=== PATIENT | female | born 1985 | race African-American/Black ===

== ENCOUNTER 2018-11-16 07:31 | Outpatient (CLI) | payer OTHER ==
--- NOTE | 2018-11-16 10:42 | ULT ---
OBSTETRICAL ULTRASOUND: 11/16/2018 HISTORY: A 33-year-old female, undergoing assessment for size and dates. COMPARISON: None. TECHNIQUE: Multiplanar terry-scale sonographic imaging of the gravid uterus is obtained. FINDINGS: The cervix measures approximately 3.8 cm in length. There is a single intrauterine gestation, demonstrating a vertex presentation. Placenta is located a nteriorly, with no evidence for previa or abruption. heart rate is 162 beats per minute. Evaluation of the intracranial contents appears grossly unremarkable, but they are suboptimally assessed secondary to the location of the head and the patient body habitus. Evaluation of th e spine is grossly unremarkable but limited as well. Four-chamber heart view is limited secondary to body habitus as well. urinary bladder and umbi lical cord appear grossly unremarkable, as does the region of the kidneys and stomach. F our-chamber heart view is felt to likely be within normal limits. Amniotic fluid index is 13.8 cm, within normal limits. The umbilical cord insertion site could not b e optimally assessed on this exam. BIOMETRY: BPD: 6.8 cm (27 weeks 3 days). HC: 25.3 cm (27 weeks 3 days). AC: 23.1 cm (27 weeks 3 days). FL: 5.2 cm (27 weeks 5 days). Average age based on ultrasound is 27 weeks 4 days. Estimated date of delivery is 02/11/2019. Estimated weight is 1090 g, plus/minus 161 g. IMPRESSION: Single intrauterine gestation, as detailed above. POS: [facility]
== END 2018-11-16 07:32 | disposition home or self-care (01) ==
LOC: ULT 07:31
PROVIDERS: ATTEND Family Medicine
DX: O09.92 Supervision of high risk pregnancy, unspecified, second trimester (principal); Z3A.27 27 weeks gestation of pregnancy
CPT/HCPCS: 76805

== ENCOUNTER 2019-02-13 16:04 | Inpatient (IN) | payer OTHER ==
--- NOTE | 2019-02-13 15:08 | PDOC.FPROB ---
FMR OB H&P: HPI - History of Present Illness Chief Complaint: IOL Indentification: 33yo female at 39.4wks by 21.5wk US History of Present Illness: 33yo female at 39.4wks by 21.5wk US presents for IOL. has been complicated by late transition of care and obesity. Denies VB, LOF, CTX, change in discharge. Endorses FM. Denies CASILLAS, vision changes, RUQ pain, SOB, edema. Primary Care Physician: Dr Sol FMR OB H&P: Current - Care : 1 Para: 0 Gestational age: 39.4 Due date: 02/16/19 Dating Criteria: 21.5wk sono Total weight gain: last weight 370 (12/27/18) - OB Labs Blood type: A RH: positive Antibody Screen: negative HIV: negative RPR: negative HepBsAg: negative Rubella: immune Gonorrhea: negative Chlamydia: negative 1 hour gtt: 68 GBS: negative H&H: 12.9/37.5 - First Trimester Ultrasound First trimester: Dating US 21.5 wks FMR OB H&P: History - OB History OB History: Obesity in - [employer] History [employer] History: Normal PAP on 09/02/18 FMR OB H&P: Medications - Current Home Medications: Medication Instructions Recorded Confirmed Type Pnv72/Iron,Gluc/Folic/Dss/Dha 1 each PO DAILY 02/13/19 02/13/19 History [Citranatal 90 DHA Combo Pack] Allergies/Adverse Reactions: Allergies Allergy/AdvReac Type Severity Reaction Status Date / Time Penicillins Allergy Mild Hives Verified 02/14/19 00:15 FMR OB H&P: ROS - Review of Systems General: denies: fever/chills, weight/appetite/sleep changes Eyes: denies: vision changes, double vision, scotomas, floaters ENT: denies: nasal congestion, rhinorrhea Cardiovascular: denies: chest pain, palpitation Respiratory: denies: cough, congestion, shortness of breath Gastrointestinal: denies: abdominal pain Genitourinary (Female): denies: dysuria, vaginal discharge, vaginal bleeding, contractions Musculoskeletal: denies: pain, stiffness, swelling Neurologic: denies: weakness, headache Integumentary: denies: itching, rash FMR OB H&P: Physical Exam - Physical Exam General: NAD, awake, alert and oriented HEENT: normocephalic and atraumatic, conjunctiva clear, oropharynx clear Neck: supple, trachea midline Heart: RRR, no murmurs/rubs/gallops, pulses present, no edema General: CTAB, no respiratory distress, no wheezing Abdomen: gravid, other (obese) FMR OB H&P: A/P - Problem List (1) High-risk in third trimester Status: Acute Code(s): O09.93 - SUPERVISION OF HIGH RISK , UNSP, THIRD TRIMESTER (2) Obesity Status: Acute Code(s): E66.9 - OBESITY, UNSPECIFIED Disposition: 33yo female at 39.4wks by 21.5wk US sIUP, IOL - NST reactive - Admit to L&D - SVE: 3 - Will start induction with cytotec - Would like to avoid epidural but watching video - Serial cervical checks BMP 54 Discussion: Date/Time: 02/13/19 1505 This H&P was discussed with Dr. Marcelino who agrees with the above documentation and plan. Addendum - Attending - Attending Attestation Date/Time: 02/14/192052 I personally evaluated the patient and discussed the management with Dr. Jiménez and Ebenezer. I agree with the History, Examination, Assessment and Plan documented above with any addition or exceptions noted below. 33 yo G1 at 39w4d dated by 21w5d US undergoing elective induction for BMI of 54. Cat I FHT. Start induction with cytotec. Cephalic presentation confirmed by ultrasound. GBS negative.
[2019-02-13] MEDS ORDERED: Promethazine HCl 25 MG/ML VIAL IM PRN (22:58)
[2019-02-13] MEDS ORDERED: Ondansetron PF 4 MG/2 ML Vial IVP PRN (22:58)
[2019-02-13] MEDS ORDERED: Lidocaine 1% (PF) 30 ML VIAL SC PRN (22:58)
[2019-02-13] MEDS ORDERED: NS / Oxytocin 40 units/1000ml 1,000 ML IV PRN (22:58)
[2019-02-13 23:40] VITALS: BMI 54.8
[2019-02-14] MEDS: Lactated Ringer's 1,000 ML IV SCH ×3 (00:06→15:38)
[2019-02-14] MEDS: Misoprostol 100 MCG TAB VAG SCH ×4 (00:36→15:10)
[2019-02-14 01:05] LABS: Mean Corpuscular HGB CONC 34.2 g/dL (32.0-36.0); Mean Corpuscular Hemoglobin 32.5 pg (27.0-31.0); Mean Platelet Volume 8.5 fL (7.4-10.4); Platelet Count 208 thou/uL (130-400); RBC Distribution Width 12.9 % (11.5-14.5); White Blood Cell (WBC) Count 10.2 thou/uL (4.8-10.8)
[2019-02-14 01:50] LABS: Hep B Surf Ag Non-Reactive S/CO (NonReactive); Syphilis Antibody Nonreactive (Nonreactive); Syphilis Antibody Index 0.07 S/CO (<1.00 Non-Reactive)
--- NOTE | 2019-02-14 04:53 | PDOC.LDPN ---
Labor & Delivery Progress Note - Subjective Subjective: painful contractions - Objective Vital signs reviewed and normal: yes General: NAD Uterine fundus: non tender Dilation: 4 Effacement: 50% Station: -2 FHT: category 1 (130/mod/+ accels/no decels) [place] contractions every: 3-5min - Assessment (1) High-risk in third trimester Code(s): O09.93 - SUPERVISION OF HIGH RISK , UNSP, THIRD TRIMESTER Status: Acute (2) Obesity Code(s): E66.9 - OBESITY, UNSPECIFIED Status: Acute Plan: continue plan of care, labor augmentation -: 33yo female at 39.4wks by 21.5wk US sIUP, IOL - NST reactive - SVE: /-2 - Serial cervical checks BMP 54 Addendum - Attending - Attending Attestation Date/Time: 02/14/192101 I personally evaluated the patient and discussed the management with Dr. beck I agree with the History, Examination, Assessment and Plan documented above with any addition or exceptions noted below. Please note BMI (not BMP) is 54. At this check pt was 4cm and nahed q 2min so unable to place another cytotec or start pitocin. Will continue monitoring and recheck in 4hrs to see if able to start pitocin at that time. Cat I FHT.
--- NOTE | 2019-02-14 08:54 | PDOC.LDPN ---
Labor & Delivery Progress Note - Subjective Subjective: comfortable, loss of fluid - Objective Vital signs reviewed and normal: yes General: NAD, resting Uterine fundus: non tender Dilation: 5 Effacement: 75% (70) Station: -2 FHT: category 1 Plan: continue plan of care -: 33yo female at 39.4wks by 21.5wk US sIUP, IOL - NST Cat I, difficult to fully trace baby d/t maternal habitus however good tracing cat I - SVE: /-2, intact, possible small leak, did not rupture as cannot adequatly monitor baby - Hold off on pitocin, recheck in 2 hours Maternal obesity -BMI 54
[2019-02-14] MEDS ORDERED: Fentanyl 100 MCG/2 ML VIAL SLOW IVP PRN (09:20)
[2019-02-14] MEDS ORDERED: Butorphanol Tartrate 1 MG/ML VIAL SLOW IVP PRN ×2 (09:20→12:33)
[2019-02-14] MEDS ORDERED: Butorphanol Tartrate 1 MG/ML VIAL ONE (12:55)
--- NOTE | 2019-02-14 13:28 | PDOC.LDPN ---
Labor & Delivery Progress Note - Subjective Subjective: painful contractions - Objective Vital signs reviewed and normal: yes General: resting Uterine fundus: non tender Dilation: 6 Effacement: 75% (70) Station: -2 FHT: category 1 [place] contractions every: 7 minutes AROM: clear fluid (yellow tinge, no fould odor) IUPC placed: yes FSE placed: yes - Assessment (1) High-risk in third trimester Code(s): O09.93 - SUPERVISION OF HIGH RISK , UNSP, THIRD TRIMESTER Current Visit: No Status: Acute Plan: continue plan of care -: 33yo female at 39.4wks by 21.5wk US Term sIUP, IOL - NST Cat I, difficult to fully trace baby d/t maternal habitus therefore IUPC and FSE placed - SVE: /-2, intact, SROM noted at approx 1200 - Hold off on pitocin, recheck in 2 hours Maternal obesity -BMI 54
--- NOTE | 2019-02-14 15:07 | PDOC.LDPN ---
Labor & Delivery Progress Note - Subjective Subjective: painful contractions - Objective Vital signs reviewed and normal: yes (intermittent 140 systolic with contraction ) General: resting Uterine fundus: non tender Dilation: 6 Effacement: 75% (70) Station: -1 FHT: category 1 [place] contractions every: 3-7 minutes - Assessment (1) High-risk in third trimester Code(s): O09.93 - SUPERVISION OF HIGH RISK , UNSP, THIRD TRIMESTER Current Visit: No Status: Acute (2) Obesity Code(s): E66.9 - OBESITY, UNSPECIFIED Current Visit: No Status: Acute Plan: pitocin for augmentation
[2019-02-14] MEDS ORDERED: NS w/ Oxytocin 10 units 500 ML IV SCH (15:30)
--- NOTE | 2019-02-14 16:43 | PDOC.LDPN ---
Labor & Delivery Progress Note - Subjective Subjective: painful contractions - Objective Vital signs reviewed and normal: yes General: breathing through contractions Dilation: 7 Effacement: 75% (80) Station: -1 FHT: category 1 [place] contractions every: 2-3min - Assessment (1) High-risk in third trimester Code(s): O09.93 - SUPERVISION OF HIGH RISK , UNSP, THIRD TRIMESTER Current Visit: No Status: Acute (2) Obesity Code(s): E66.9 - OBESITY, UNSPECIFIED Current Visit: No Status: Acute Plan: continue plan of care, pitocin for augmentation -: 33yo female at 39.4wks by 21.5wk US Term sIUP, IOL - NST: Cat I 130 - SVE: /-1 , CTX 2-3min, mVU>200 units - Pitocin at 4 - Continue stadol for pain, still thinking about epidural Maternal obesity -BMI 54
[2019-02-14] MEDS ORDERED: Fentanyl 4 mcg/Bup 0.1% Cadd 100 ML ONE (17:30)
[2019-02-14] MEDS ORDERED: Lidocaine 1.5%/Epinephrine 1:200,000 5 ML AMPUL IJ ONE (17:43)
--- NOTE | 2019-02-14 20:53 | PDOC.LDPN ---
Labor & Delivery Progress Note - Subjective Subjective: painful contractions - Objective Vital signs reviewed and normal: yes General: NAD Dilation: 8 Effacement: 90% Station: -1 FHT: category 2 (130/mod/+ accels/rare variables) [place] contractions every: 2-3min AROM: clear fluid IUPC placed: yes FSE placed: yes Resuscitative measures: maternal position change - Assessment (1) High-risk in third trimester Code(s): O09.93 - SUPERVISION OF HIGH RISK , UNSP, THIRD TRIMESTER Status: Acute (2) Obesity Code(s): E66.9 - OBESITY, UNSPECIFIED Status: Acute Plan: labor augmentation, pitocin for augmentation -: 33yo female at 39.5wks by 21.5wk US Term sIUP, IOL - NST: Cat I 130 - SVE: 8/90/-1 , CTX 2-3min, mVU>200 units - sROM with clear fluid - Pitocin at 8 - Continue stadol for pain Maternal obesity -BMI 54 Addendum - Attending - Attending Attestation Date/Time: 02/14/192106 I personally evaluated the patient and discussed the management with Dr. Sol I agree with the History, Examination, Assessment and Plan documented above with any addition or exceptions noted below. Pt has had unchanged cervical exam x 4hrs despite adequate contractions. Cat II tracing for rare variable decels but moderate variability is maintained and accels are present. Overall reassuring tracing. Will recheck in 1 hr. If she still has not change will discuss moving towards delivery.
--- NOTE | 2019-02-14 22:14 | PDOC.LDPN ---
Labor & Delivery Progress Note - Subjective Subjective: painful contractions - Objective Vital signs reviewed and normal: yes General: breathing through contractions Dilation: 9 Effacement: 100% Station: -1 FHT: category 2 (130/mod/+ accels/rare variables) AROM: clear fluid IUPC placed: yes FSE placed: yes - Assessment (1) High-risk in third trimester Code(s): O09.93 - SUPERVISION OF HIGH RISK , UNSP, THIRD TRIMESTER Current Visit: No Status: Acute (2) Obesity Code(s): E66.9 - OBESITY, UNSPECIFIED Current Visit: No Status: Acute Plan: labor augmentation, pitocin for augmentation -: 33yo female at 39.5wks by 21.5wk US Term sIUP, IOL - FHTs 130 Cat 2 due to rare variables - SVE: 9/100/-1 , CTX 2-5min, mVU>200 units - sROM with clear fluid - Pitocin at 8 - Will recheck in 1 hr Maternal obesity -BMI 54
--- NOTE | 2019-02-15 00:07 | PDOC.EVN ---
Event Note - Event Note Event Note: Called to bedside for cat II tracing. On review of strip pt had several decelerations after contractions. Some are clearly late decels but majority are difficult to ascertain if they are variable or late decels. Moderate variability and accels present. Cervix 9/80/0. Anterior cervix is edematous. Pitocin d/aidee, fluid bolus started and pt repositioned with resolution of decels. Will give a rest period and attempt to restart pitocin. Discussed possible need to have delivery. Will continue to monitor
[2019-02-15] MEDS ORDERED: Azithromycin 500 MG in Sodium Chloride 0.9% 250 ML 250 ML IVPB SCH (01:15)
[2019-02-15] MEDS ORDERED: CEFAZOLIN 2 GM in Premix Bag 1 BAG IVPB ONE (01:15)
[2019-02-15] MEDS ORDERED: Bicitra 30 ML UDCUP PO SCH (01:30)
[2019-02-15] MEDS ORDERED: CEFAZOLIN 3 GM in Sodium Chloride 0.9% 100 ML IVPB ONE (01:31)
--- NOTE | 2019-02-15 01:36 | PDOC.EVN ---
Event Note - Event Note Event Note: Pt rechecked at 0115. Cervix unchanged from last check and now the entire cervix is edematous. Discussed recommendation for delivery at this time for arrest of dilation at 9cm. R/B/A of delivery were discussed and all questions were answered. Pt would like to proceed with delivery at this time
[2019-02-15] MEDS ORDERED: Oxytocin 10 UNITS/ML VIAL ONE (01:48)
[2019-02-15] MEDS ORDERED: ePHEDrine/0.9% NaCl/PF SYRINGE 50 mg/10 ml ONE (01:48)
[2019-02-15] MEDS ORDERED: MORPHINE 5 MG/10 ML PF VIAL ONE (01:48)
[2019-02-15] MEDS ORDERED: Methylergonovine 0.2 MG/ML VIAL ONE (02:55)
[2019-02-15] MEDS ORDERED: Carboprost 250 MCG/ML AMP ONE (02:55)
[2019-02-15] MEDS ORDERED: Misoprostol 200 MCG TAB ONE (02:56)
[2019-02-15] MEDS ORDERED: Ondansetron PF 4 MG/2 ML Vial IVP PRN (03:50)
[2019-02-15] MEDS ORDERED: Eucerin (Mineral Oil/Petrolatum,White) 30 gm Jar TOP PRN (03:50)
[2019-02-15] MEDS ORDERED: HYDROmorphone 2 MG/ML VIAL SLOW IVP PRN (03:50)
[2019-02-15] MEDS ORDERED: diphenhydrAMINE 50 MG/ML VIAL IVP PRN (03:50)
[2019-02-15] MEDS ORDERED: Naloxone HCl 0.4 mg/ml Vial IVP PRN ×2 (03:50)
[2019-02-15] MEDS ORDERED: Naloxone HCl 0.4 mg/ml Vial IV PRN (03:50)
[2019-02-15] MEDS ORDERED: Promethazine HCl 25 MG SUPP PR PRN (03:50)
[2019-02-15] MEDS ORDERED: Ondansetron HCl/PF 4 MG/2 ML Vial IVP PRN (03:50)
[2019-02-15] MEDS ORDERED: Promethazine HCl 25 MG/ML VIAL IM PRN (03:50)
[2019-02-15] MEDS ORDERED: Meperidine HCl/PF 25 MG/ML VIAL SLOW IVP PRN (03:50)
[2019-02-15] MEDS ORDERED: L&D-Morphine 4 MG/ML VIAL SLOW IVP PRN (03:50)
[2019-02-15] MEDS ORDERED: Communication Order-Pharmacy FS SCH (04:00)
[2019-02-15] MEDS ORDERED: Ketorolac Tromethamine 30 MG/ML VIAL IVP SCH (04:00)
--- NOTE | 2019-02-15 04:45 | PDOC.OP ---
Operative Note - Operative Note Operative Note: Date of Procedure: 02/15/19 Resident Surgeons: Yaz Sol MD and Cricket Hernandez MD Attending Surgeon: Lisha Marcelino DO Procedure: Primary low transverse caesarean section Preoperative Diagnosis: 1) Term intrauterine 2) Obesity in BMI 54 3) Failure to dilate 4) Primary Low Transverse Delivery Postoperative Diagnosis: 1) Term intrauterine 2) Obesity in BMI 54 3) Failure to dilate 4) hemorrhage, hemodynamically stable 5) Primary Low Transverse Delivery Anesthesia: spinal Indications: The patient is a 33 year old female at 39.5weeks by 21.5wk who presented for IOL with failure to progress at 9cm. Procedure in Detail: After risks, benefits, and alternatives were explained to the patient, she gave informed consent. Pre-operative antibiotics included Cefazolin 3 gram IV and Azithromycin 500mg IV. The patient was taken to the operating room and spinal anesthesia was initiated. She was placed in the supine position with a left tilt and prepped and draped in usual sterile fashion. A Pfannenstiel incision was made with a scalpel and carried down to the level of the fascia which was sharply nicked. The fascial cut was extended bilaterally with blunt dissection and Shine sissors. The inferior and superior edges of the cut fascial edges were elevated with Umesh clamps and the underlying rectus muscles were sharply and bluntly dissected free. A small button hole was noted along the superior edge. A small belly of the right rectus abdominis muscle was inadvertently transected bluntly. The recti were divided digitally and retracted manually. The peritoneum was entered bluntly and retracted manually. Vargas-O retractor was placed. A low transverse score was made with the scalpel and the uterus was entered in the midline with the scalpel. Clear fluid was seen. The hysterotomy was extended manually. The infant was noted to be vertex in the occiput posterior position and was easily delivered by fundal pressure. Time of 0315 Mouth and nares were bulb suctioned. Cord clamped and cut and grossly normal female infant was handed to waiting nurse. Cord blood was obtained. Placenta was manually extracted, found to be intact with 3 vessel cord and discarded. The uterus was externalized and the endometrium was curetted with a dry lap. The uterus was closed with a running locking #1 Monocryl suture followed by a running non-locking #1 Monocryl imbricating suture. The uterus was returned to the abdomen. Small serosal bleeding vessels were noted along the left apex which was addressed with the Bovie and packed with Surgicel. Following this hemostasis was noted. The abdomen was free of clots. The uterus was internalized and the hysterotomy was again noted to be hemostatic. The Vargas-O was removed. Rectus muscles were inspected. Areas of oozing were cauterized using bovie. The inferior end of the transected rectus muscle was noted to be hemostatic. The button hole in the fascia was fixed with running #1 Monocryl suture. The fascia was closed with a running non-locking 0-PDS suture. The subcutaneous tissue was irrigated and bleeding vessels were controlled with Bovie. The subcutaneous space was closed using a 3-0 plain gut in a running fashion. The skin was approximated with richard and Prevena incision management system applied. All counts were correct x3. The patient tolerated the procedure well and was taken to the recovery room in stable condition. Quantitative Blood Loss: 1085ml Complications: None Specimens: Cord blood sent to lab for blood type Findings: Grossly normal male/female infant with apgars of 7 and 9. Grossly normal placenta with 3 vessel cord discarded. Drains: Bryant to gravity draining clear urine Addendum - Attending - Attending Attestation Date/Time: 02/15/19 4263 I was present for and assisted in the entire uncomplicated delivery performed by Meron Sol and David. I agree with above documentation.
--- NOTE | 2019-02-15 08:39 | PDOC.EVN ---
Event Note - Event Note Event Note: 4hr postop note: Patient reports doing well. Tired. Some incision site tenderness but not extreme. Denies fatigue, chest pain, palpitations, fevers. VS: Tachy at 101-116 Afebrile BPs wnl PE: Gen: NAD, resting, tired CV: RRR Abd: wound vac to suction, hypoactive VS, incisional tenderness that is appropraite 1. PPH-AM hemagram, monitor VS 2. Maternal morbid obesity- DVT ppx with lovenox 40mg daily 3. Continue routine care 4. Cold autoantibodies- MD aware 5. Tachycardia- mild dehydration, will get diet this AM. Monitor, if not improved start IVF and check H/H due to concern for anemia 5. Pending UDS
[2019-02-15] MEDS: Ibuprofen 800 MG TAB PO SCH ×3 (08:49→22:59)
[2019-02-15] MEDS: Misoprostol 100 MCG TAB VAG SCH ×2 (08:50→08:51)
[2019-02-15] MEDS: Lactated Ringer's 1,000 ML IV SCH ×2 (08:51→15:47)
[2019-02-15] MEDS: Ketorolac Tromethamine 30 MG/ML VIAL IVP PRN ×2 (08:52→15:42)
[2019-02-15] MEDS ORDERED: Adacel (T-DAP) 0.5 ML SYRINGE IM ONE (09:00)
[2019-02-15] MEDS ORDERED: Polyethylene Glycol 3350 17 GM Packet PO PRN (11:47)
[2019-02-15] MEDS ORDERED: Ferrous Sulfate 325 MG TAB PO SCH (12:00)
[2019-02-15] MEDS: Docusate 100 MG CAP PO SCH (22:59)
[2019-02-15] MEDS: Enoxaparin Sodium 40 MG/0.4 ML SYRINGE SC SCH (23:00)
[2019-02-16] MEDS ORDERED: Acetaminophen 500 MG TAB PO PRN (00:58)
[2019-02-16 06:05] LABS: Mean Corpuscular HGB CONC 33.5 g/dL (32.0-36.0); Mean Corpuscular Hemoglobin 31.9 pg (27.0-31.0); Mean Corpuscular Volume 95.2 fL (78.0-98.0); Mean Platelet Volume 8.1 fL (7.4-10.4); Platelet Count 158 thou/uL (130-400); RBC Distribution Width 12.9 % (11.5-14.5); Red Blood Cell (RBC) Count 3.46 mill/uL (4.20-5.40)
[2019-02-16] MEDS: Ibuprofen 800 MG TAB PO SCH ×3 (06:19→21:45)
--- NOTE | 2019-02-16 08:24 | PDOC.PP ---
Post Progress Note Post Day #: 1 Subjective: NAEO. Tired from baby keeping her up. only ambulated to bathroom. Troubles with latching baby would like help. No chest pain, problems breathing. PO intake tolerated: yes Flatus: yes Ambulation: no Vital Signs (12 hours) Temp Pulse Resp BP Pulse Ox 02/16/19 07:45 98.3 F 91 20 114/64 98 02/16/19 06:25 98.7 F 89 18 109/68 02/16/19 01:20 99.8 F H 99 18 115/59 L Weight Weight 173.272 kg - Physical Examination General: NAD Deviation from normal: obese body habitus Cardiovascular: no m/r/g, RRR Respiratory: non-labored breathing Abdominal: lochia, appropriately TTP Skin: CS incision dry & intact, no rash Deviation from normal: wound vac in place, not much drainage Neurological: no gross focal deficits Psychiatric: A&Ox3, normal affect Result Diagrams: 02/16/19 05:46 Additional Labs: Post Labs Blood Type A POSITIVE 02/14/19 01:59 Hep Bs Antigen Non-Reactive S/CO (NonReactive) 02/14/19 00:20 (1) High-risk in third trimester Code(s): O09.93 - SUPERVISION OF HIGH RISK , UNSP, THIRD TRIMESTER Status: Acute (2) Obesity Code(s): E66.9 - OBESITY, UNSPECIFIED Status: Acute - Assessment/Plan delivered via primary LTCS at 39.5 weeks to TAGA F s/p primary LTCS for failure to dilate, POD 2 -doing well, encouraged ambulation and inc po intake -Provera wound vac in place -ibuprofen & tyelnol -continue routine PP care Maternal obesity -BMI 50s -lovenox daily for dvt ppx -will consumer credit counselor on lifestyle modification Anemia -continue iron and miralax/docusate Dispo: continue routine care will discuss w/ Dr. Magana Addendum - Attending - Attending Attestation Date/Time: 02/16/19 1034 I personally evaluated the patient and discussed the management with Dr. Jiménez I agree with the History, Examination, Assessment and Plan documented above with any addition or exceptions noted below- Patient without complaints. Tolerating regular diet. Ambulating in room. Afebrile VSS A/P: 1) POD#1 s/p 1* LCT C/S- continue routine care. Encourage ambulation. Continue lovenox for DVT prophylaxis
[2019-02-16] MEDS: Ferrous Sulfate 325 MG TAB PO SCH (09:11)
[2019-02-16] MEDS: Docusate 100 MG CAP PO SCH ×2 (09:12→21:45)
[2019-02-16 15:10] LABS: Amphetamine Not Detected (NotDetected); Barbiturates Screen Not Detected (NotDetected); Benzodiazepine Screen Not Detected (NotDetected); Cocaine Metabolite Screen Not Detected (NotDetected); Medtox Control Line Valid? VALID (VALID); Medtox Reader # READER 1; Methadone Not Detected (NotDetected); Methamphetamine Not Detected (NotDetected); Opiate Screen Not Detected (NotDetected); Oxycodone Screen Not Detected (NotDetected); Phencyclidine (PCP) Not Detected (NotDetected); THC/Cannabinoid Screen Not Detected (NotDetected); Tricyclic Screen Not Detected (NotDetected)
[2019-02-16] MEDS: Enoxaparin Sodium 40 MG/0.4 ML SYRINGE SC SCH (22:38)
[2019-02-17] MEDS ORDERED: Lanolin Ointment 7 GM TUBE TOP PRN (05:07)
[2019-02-17] MEDS: Ibuprofen 800 MG TAB PO SCH ×3 (06:34→21:38)
--- NOTE | 2019-02-17 09:25 | PDOC.PP ---
Post Progress Note Post Day #: 2 Subjective: NAEO. Concerned with getting everything in order at home. PO intake tolerated: yes Flatus: yes Ambulation: yes Vital Signs (12 hours) Temp Pulse Resp BP Pulse Ox 02/17/19 07:42 98.1 F 81 20 110/65 99 02/17/19 01:05 98.0 F 88 18 108/57 L Weight Weight 173.272 kg - Physical Examination General: NAD Deviation from normal: obese Respiratory: clear to auscultation bilaterally, non-labored breathing Abdominal: appropriately TTP Deviation from normal: wound vac, no drainage Skin: no rash Neurological: no gross focal deficits Psychiatric: A&Ox3, normal affect Result Diagrams: 02/16/19 05:46 Additional Labs: Post Labs Blood Type A POSITIVE 02/14/19 01:59 Hep Bs Antigen Non-Reactive S/CO (NonReactive) 02/14/19 00:20 (1) High-risk in third trimester Code(s): O09.93 - SUPERVISION OF HIGH RISK , UNSP, THIRD TRIMESTER Status: Acute (2) Obesity Code(s): E66.9 - OBESITY, UNSPECIFIED Status: Acute (3) delivery delivered Code(s): O82 - ENCOUNTER FOR DELIVERY WITHOUT INDICATION Status: Acute - Assessment/Plan delivered via primary LTCS at 39.5 weeks to RAFI Jacome s/p primary LTCS for failure to dilate, POD 2 -doing well, encouraged ambulation and inc po intake -Provera wound vac in place -ibuprofen & tyelnol -continue routine PP care -some trouble with -continue visits, now supplementing with bottle feeds -desires abstinence for PP contraception. Explained risks of short interval , discussed other options. Pt aware of risks. -signed for abdominal binder Maternal obesity -BMI 50s -lovenox daily for dvt ppx -will after school counselor on lifestyle modification Anemia -continue iron and miralax/docusate Dispo: continue routine care, likely d/c home tmrw after patient is able to recover more and organize home transition/situation. will discuss w/ Dr. Magana Addendum - Attending - Attending Attestation Date/Time: 02/17/19 0609 I personally evaluated the patient and discussed the management with Dr. Jiménez I agree with the History, Examination, Assessment and Plan documented above with any addition or exceptions noted below- Patient without complaints. Ambulating in halls. Voiding without difficulty. Afebrile VSS. A/P: 1) POD #2 s/ p 1* LCT C/S- continue routine care. Possible d/c home later today versus tomorrow.
[2019-02-17] MEDS: Ferrous Sulfate 325 MG TAB PO SCH (09:31)
[2019-02-17] MEDS: Docusate 100 MG CAP PO SCH ×2 (09:35→21:38)
[2019-02-17] MEDS: Enoxaparin Sodium 40 MG/0.4 ML SYRINGE SC SCH (21:38)
[2019-02-18] MEDS: Ibuprofen 800 MG TAB PO SCH ×2 (06:30→14:07)
--- NOTE | 2019-02-18 07:26 | PDOC.PP ---
Post Progress Note Post Day #: 3 Subjective: Feeling well. and pumping. No new concerns today. Feels ready to go home. PO intake tolerated: yes Flatus: yes Ambulation: yes Vital Signs (12 hours) Temp Pulse Resp BP Pulse Ox 02/17/19 19:58 97.6 F 84 18 139/82 100 02/17/19 19:55 100 Weight Weight 173.272 kg - Physical Examination General: NAD Cardiovascular: no m/r/g, RRR Respiratory: clear to auscultation bilaterally Abdominal: lochia (scant), no distention, appropriately TTP Fundus firm & at: unable to appreciate 2/2 habitus Extremities: negative homans (B) Skin: CS incision dry & intact (Provena in place), no rash Neurological: no gross focal deficits Psychiatric: A&Ox3, normal affect Result Diagrams: 02/16/19 05:46 Additional Labs: Post Labs Blood Type A POSITIVE 02/14/19 01:59 Hep Bs Antigen Non-Reactive S/CO (NonReactive) 02/14/19 00:20 (1) High-risk in third trimester Code(s): O09.93 - SUPERVISION OF HIGH RISK , UNSP, THIRD TRIMESTER Status: Acute (2) delivery delivered Code(s): O82 - ENCOUNTER FOR DELIVERY WITHOUT INDICATION Status: Acute (3) Obesity Code(s): E66.9 - OBESITY, UNSPECIFIED Status: Acute Qualifiers: Body mass index: BMI 50.0-59.9 - Assessment/Plan delivered via primary LTCS on 02/15 1. s/p primary LTCS for arrest of dilation, POD 3 -doing well, ambulating and tolerating PO -Provera wound vac in place -ibuprofen & tylenol -continue routine PP care -some trouble with -continue visits, now supplementing with bottle feeds -desires abstinence for PP contraception. Explained risks of short interval , discussed other options. Pt aware of risks. -abdominal binder in place 2. Maternal obesity -BMI 50s -lovenox daily for dvt ppx 3. Anemia -mild, can d/c iron Dispo: d/c today Addendum - Attending - Attending Attestation Date/Time: 02/18/19 1254 I personally evaluated the patient and discussed the management with Dr. Castano I agree with the History, Examination, Assessment and Plan documented above with any addition or exceptions noted below- Patient denies complaints. Ambulating/voiding without difficulty. Pain well controlled. Afebrile VSS. A/P: 1) POD#3 s/p 1* LCT C/S - doing well. Plan to d/c home today. F/u @[facility] in 3-4 days.
[2019-02-18] MEDS: Docusate 100 MG CAP PO SCH (09:34)
[2019-02-18 09:53] VITALS: BP 126/66; TEMP 97.8
== END 2019-02-18 18:05 | disposition home or self-care (01) | DRG 788 ==
LOC: L&D 22:26 → 3SW 02-15 06:56
PROVIDERS: ADMIT Family Medicine; ATTEND Family Medicine
PROC: 3E033VJ Introduction of Other Hormone into Peripheral Vein, Percutaneous Approach (ICD-10-PCS; principal; 2019-02-14)
PROC: 10H07YZ Insertion of Other Device into Products of Conception, Via Natural or Artificial Opening (ICD-10-PCS; 2019-02-14)
PROC: 4A1H7CZ Monitoring of Products of Conception, Cardiac Rate, Via Natural or Artificial Opening (ICD-10-PCS; 2019-02-14)
PROC: 10D00Z1 Extraction of Products of Conception, Low, Open Approach (ICD-10-PCS; 2019-02-15)
DX: O99.214 Obesity complicating childbirth (principal); E66.9 Obesity, unspecified; O76 Abnormality in fetal heart rate and rhythm complicating labor and delivery; O12.04 Gestational edema, complicating childbirth; O62.1 Secondary uterine inertia; O99.02 Anemia complicating childbirth; D64.9 Anemia, unspecified; Z3A.39 39 weeks gestation of pregnancy; Z37.0 Single live birth
CPT/HCPCS: 36415; 51702; 80306; 85027; 86780; 86850; 86870; 86900; 86901; 86922; 87340; J0595; J0690; J1650; J1885; J2001; J2210; J2270; J2590; J3490